=== PATIENT | male | born 1970 | race Caucasian/White ===

== ENCOUNTER 2017-10-21 07:01 | Emergency (ER) | payer SELFPAY ==
[~2017-10-21] VITALS: Ht 193 cm; Wt 93.8 kg
[2017-10-21] MEDS ORDERED: IBUP-1986 PO (08:31)
[2017-10-21] MEDS ORDERED: CLIN-80 PO (08:31)
[2017-10-21] MEDS ORDERED: TRAM50TA2 PO (08:31)
[2017-10-21 08:37] VITALS: BP 156/89
== END 2017-10-21 08:39 | disposition home or self-care (01) ==
LOC: ER 07:02
DX: K04.7 Periapical abscess without sinus (principal); M26.621 Arthralgia of right temporomandibular joint; G89.29 Other chronic pain; F17.210 Nicotine dependence, cigarettes, uncomplicated; Z88.0 Allergy status to penicillin
CPT/HCPCS: 41800; 99284